=== PATIENT | female | born 1970 | race Two or more races ===

== ENCOUNTER 2018-02-14 11:41 | Emergency (ER) | payer BC, MEDICAID ==
[2018-02-14 12:19] LABS: BASOPHILS # (AUTO) 0.1 10^3/uL (0.0-0.1); BASOPHILS % (AUTO) 1.2 %; EOSINOPHILS # (AUTO) 0.4 10^3/uL (0.0-0.7); EOSINOPHILS % (AUTO) 4.9 %; LYMPHOCYTES # (AUTO) 2.2 10^3/uL (1.5-3.5); LYMPHOCYTES % (AUTO) 29.6 %; MEAN CORPUSCULAR HEMOGLOBIN 31.5 pg (27.0-31.0); MEAN CORPUSCULAR VOLUME 92.8 fL (81.0-99.0); MEAN PLATELET VOLUME 8.3 fL (7.9-10.8); MONOCYTES # (AUTO) 0.6 10^3/uL (0.0-1.0); MONOCYTES % (AUTO) 7.4 %; NEUTROPHILS # (AUTO) 4.3 10^3/uL (1.5-6.6); NEUTROPHILS % (AUTO) 56.9 %; PLT - PLATELET COUNT 200 10^3/uL (130-450); RED BLOOD COUNT 4.43 10^6/uL (4.20-5.40); RED CELL DISTRIBUTION WIDTH 13.2 % (12.0-15.0); WHITE BLOOD COUNT 7.5 x10^3/uL (4.8-10.8)
[2018-02-14 12:27] LABS: ALBUMIN 4.4 g/dL (3.2-5.5); ALBUMIN/GLOBULIN RATIO 1.4 (1.0-2.2); CALCIUM 9.1 mg/dL (8.5-10.3); CREATININE 0.6 mg/dL (0.4-1.0); TOTAL PROTEIN 7.6 g/dL (6.7-8.2)
--- NOTE | 2018-02-14 12:55 | XRAY Report ---
EXAM: CHEST RADIOGRAPHY EXAM DATE: 02/14/2018 12:37 PM. CLINICAL HISTORY: Chest pain with acute onset 2 hours ago, shortness of breath. Prior ME 18 months ag o. COMPARISON: 11/14/2015. TECHNIQUE: 2 views. FINDINGS: Lungs/Pleura: Diffuse pulmonary vascular fullness. No pleural effusion or definite focal consolidation. Mediastinum: Prominent cardiac silhouette. Other: Gallbladder fossa surgical clips. IMPRESSION: Mild pulmonary vascular congestion. [facility] Referring Provider Line: [phone] SITE ID: [id number]
--- NOTE | 2018-02-14 13:44 | ED Physician Documentation ---
PD HPI HEADACHE - Stated complaint Stated Complaint: HEAD,NECK,CHEST PX - Chief complaint Chief Complaint: Cardiac - History obtained from History obtained from: Patient - History of Present Illness Timing - onset: How many hours ago (2), Today Timing - onset during: Light activity (at work) Timing - duration: Minutes Timing - details: Abrupt onset, Now resolved (she had onset of abrupt sharp pain in frontal to left side of head (then seemed general headache) and it increased to involve anterior neck and then upper chest around manubrium. This was also sharp pain. She felt some dyspnea and lightheaded. No change nor loss of vision. No focal weakness nor facial droop nor trouble talking. Had history of heart problem about 1 1/2 years ago, dx with "small CT" and does have history of some migraines, but this felt different from those. Pain improved after few minutes and is mostly gone coming to the ED. She declines any meds here for the pain. Concerned about heart and head regarding significant process. ) Worst headache ever?: Worst headache ever? Quality: Stabbing Associated symptoms: No: Fever, Stiff neck, Nausea, Vomiting, Weakness, Numbness , Syncope, Eye pain, Vision changes Improved by: No: Rest Worsened by: Light. No: Noise Contributing factors: No: Anticoagulated, Recent illness, Trauma Similar symptoms before: Has not had sx before Recently seen: Not recently seen Review of Systems Constitutional: denies: Fever, Chills Nose: denies: Rhinorrhea / runny nose, Congestion, Sinus pressure / pain Throat: denies: Sore throat Respiratory: denies: Cough GI: denies: Nausea, Vomiting, Diarrhea Neurologic: denies: Focal weakness, Numbness, Difficulty speaking, Near syncope PD PAST MEDICAL HISTORY - Past Medical History Past Medical History: Yes Cardiovascular: CT (she says she had a small CT in the recnet past (about 1 1/2 years ago) and got sent to [facility] with heart cath showing open vessels. Presumed was small vessel injury and she is not on any particular treatment.) Respiratory: Asthma Neuro: Headache/migraine Endocrine/Autoimmune: HyPERthyroidism Psych: Depression, Anxiety - Past Surgical History Past Surgical History: Yes General: Cholecystectomy /TUBE MAN: section, Endometrial ablation, Tubal ligation - Present Medications Home Medications: Ambulatory Orders Medication Instructions Recorded Confirmed Levothyroxine Sodium [Levoxyl] 75 mcg PO QDAC 11/14/15 08/09/16 - Allergies Allergies/Adverse Reactions: Allergies Allergy/AdvReac Type Severity Reaction Status Date / Time No Known Drug Allergies Allergy Verified 02/14/18 11:59 - Living Situation Living Arrangement: reports: At home - Social History Does the pt smoke?: Yes Smoking Status: Current every day smoker Does the pt drink ETOH?: Yes Does the pt have substance abuse?: No - Immunizations Immunizations are current?: Yes PD ED PE NORMAL - Vitals Vital signs reviewed: Yes - General General: Alert and oriented X 3, No acute distress, Well developed/nourished - HEENT HEENT: PERRL, EOMI, Ears normal, Pharynx benign, Other (normal visual staton quadrant testing) - Neck Neck: Supple, no meningeal sign, No adenopathy, No bruit - Cardiac Cardiac: RRR, No murmur, No rub - Respiratory Respiratory: Clear bilaterally - Abdomen Abdomen: Soft, Non tender - Derm Derm: Normal color, Warm and dry - Extremities Extremities: No deformity, No tenderness to palpate, Normal ROM s pain, No edema , No calf tenderness / cord - Neuro Neuro: Alert and oriented X 3, clean in places operator 2-12 intact, No motor deficit, No sensory deficit, Normal speech Eye Opening: Spontaneous Motor: Obeys Commands Verbal: Oriented GCS Score: 15 - Psych Psych: Normal mood, Normal affect Results - Vitals Vitals: Vital Signs - 24 hr 02/14/18 02/14/18 02/14/18 11:57 12:55 17:21 Temperature 37.0 C Heart Rate 58 L 52 L 58 L Respiratory 16 16 Rate Blood Pressure 144/80 H 136/69 H 136/73 H O2 Saturation 99 98 Oxygen O2 Source Room air - EKG (time done) 12:03 Rate: Rate (enter#) (64) Rhythm: NSR [place]: Normal Intervals: Normal CA QRS: Normal Ischemia: Normal ST segments. No: ST elevation c/w ischemia, ST depression, T wave inversion - Labs Labs: Laboratory Tests 02/14/18 02/14/18 02/14/18 12:09 12:09 12:09 WBC 7.5 RBC 4.43 Hgb 14.0 Hct 41.1 MCV 92.8 MCH 31.5 H MCHC 34.0 RDW 13.2 Plt Count 200 MPV 8.3 Neut # 4.3 Lymph # 2.2 [place] # 0.6 Eos # 0.4 Baso # 0.1 Absolute Nucleated RBC 0.00 Nucleated RBC % 0.0 Sodium 136 Potassium 3.9 Chloride 106 Carbon Dioxide 21 Anion Gap 9.0 BUN 18 Creatinine 0.6 Estimated GFR (MDRD) 107 Glucose 94 Calcium 9.1 Total Bilirubin 1.0 AST 25 ALT 21 Alkaline Phosphatase 36 L Troponin I < 0.04 Total Protein 7.6 Albumin 4.4 Globulin 3.2 Albumin/Globulin Ratio 1.4 Lipase 54 H 02/14/18 14:21 WBC RBC Hgb Hct MCV MCH MCHC RDW Plt Count MPV Neut # Lymph # [place] # Eos # Baso # Absolute Nucleated RBC Nucleated RBC % Sodium Potassium Chloride Carbon Dioxide Anion Gap BUN Creatinine Estimated GFR (MDRD) Glucose Calcium Total Bilirubin AST ALT Alkaline Phosphatase Troponin I < 0.04 Total Protein Albumin Globulin Albumin/Globulin Ratio Lipase - Rads (name of study) chest xray Radiology: Prelim report reviewed (normal) head and neck angio Radiology: Prelim report reviewed (no signs of vascular problems. No other acute process seen.) PD MEDICAL DECISION MAKING - ED course Complexity details: considered differential (the abrupt onset of headache then neck and chest pain sounded concerning for vascular such as carotid dissection. These studies were okay though. And basic labs are good. So not a good explanation for the pains. Consider functional or other vascular headache such as a migraine, with some history of migraines but usually do not feel like this. No signs of AMI regarding the chest component of the pain. She says she had an CT in recent past but had heart cath with open vessels, so presumed it was a small vessel injury. No particular treatment at this time. ), d/w patient Departure - Departure Disposition: 01 Home, Self Care Clinical Impression: Chest pain Qualifiers: Chest pain type: precordial pain Qualified Code(s): R07.2 - Precordial pain Headache Qualifiers: Headache type: other headache syndrome Qualified Code(s): G44.89 - Other headache syndrome Clinical Impression: (Ruled Out): Myocardial infarction Condition: Stable Record reviewed to determine appropriate education?: Yes Instructions: ED Chest Pain Atypical Unkn Cause, ED Cephalgia Unspecified Follow-Up: Raul Rojas DO [Primary Care Provider] - Comments: No signs of heart attack on EKG or blood tests. No signs of vascular problems such as aneurysms, dissections, clots on evaluation of the neck and head. I am not sure the cause of your head neck and chest pain. Use Tylenol or ibuprofen if needed for pains. There is no signs of life-threatening or serious causes at this time. Recheck if it has recurrent episodes or persistent symptoms over the next few days. Discharge Date/Time: 02/14/18 17:21
[2018-02-14] MEDS ORDERED: IOPAMIDOL-300 100 ML VIAL ONE (14:23)
[2018-02-14] MEDS ORDERED: IOPAMIDOL-300 100 ML VIAL IVP ONE (15:50)
--- NOTE | 2018-02-14 16:31 | CT Preliminary Report ---
Exam: CT HEAD ANGIO IMPRESSION: CT Head: 1. No acute intracranial abnormality. Specifically, no evidence of acute infarct, hemorrhage, or mass lesion. No abnormal enhancement. CTA Head: 1. Normal CTA of the head. No significant vascular stenosis, dissection, or aneurysm. 2. The left vertebral artery is dominant, primarily forming the basilar artery. Right vertebral arter y is diffusely small in caliber. [facility] SITE ID: [id number]
--- NOTE | 2018-02-14 16:31 | CT Preliminary Report ---
Exam: CT NECK ANGIO IMPRESSION: 1. Normal neck CT angiogram. No hemodynamically significant stenoses. 2. Note the left vertebral artery is dominant. The right vertebral artery is diffusely small in calib er. [facility] SITE ID: [id number]
--- NOTE | 2018-02-14 16:38 | CT Report ---
EXAM: CT ANGIOGRAM HEAD. CT SCAN OF THE HEAD WITHOUT AND WITH CONTRAST. EXAM DATE: 02/14/2018 03:49 PM CLINICAL HISTORY: Headache abrupt today, then neck and chest pain. COMPARISON: None. CT angiogram of the neck 02/14/2018. TECHNIQUE: - CT Scan Head: Using a multidetector scanner, axial images were acquired from the foramen magnum to the skull vertex prior to and following contrast administration. - CT Angiogram: Using a multidetector scanner, high-resolution axial images were acquired from the sk ull base through vertex following rapid infusion of intravenous contrast. Reformats: Multiplanar MIP reformats were reconstructed. Nascet criteria used for stenosis measurement. IV Contrast: 80 mL Isovue 300. In accordance with CT protocol optimization, one or more of the following dose reduction techniques w ere utilized for this exam: automated exposure control, adjustment of mA and/or KV based on patient s ize, or use of iterative reconstructive technique. FINDINGS: NON-CONTRAST HEAD: Parenchyma: No intraparenchymal hemorrhage. No evidence of mass, midline shift, or CT findings of inf arction. [place]-white differentiation is distinct. Extraaxial Spaces: Normal for age. No subdural or epidural collections identified. Ventricles: Normal in size and position. Sinuses and orbits: Imaged paranasal sinuses, orbits, and mastoids show no significant abnormality. Bones: No evidence of fracture or calvarial defect. Other: None. POST-CONTRAST HEAD: No abnormal enhancement. CT ANGIOGRAM HEAD: RIGHT: Internal Carotid artery: No evidence of dissection. No evidence of aneurysm along the intracranial IC A. Anterior Cerebral Artery: Patent without significant stenosis, aneurysm, or vascular malformation. Middle Cerebral Artery: Patent without significant stenosis, aneurysm, or vascular malformation. Posterior Cerebral Artery: Patent without significant stenosis, aneurysm, or vascular malformation. Posterior Communicating Artery: Patent. No aneurysm. Vertebral Artery: Patent without significant stenosis. No evidence of dissection. Diffusely small in caliber. LEFT: Internal Carotid artery: No evidence of dissection. No evidence of aneurysm along the intracranial IC A. Anterior Cerebral Artery: Patent without significant stenosis, aneurysm, or vascular malformation. Middle Cerebral Artery: Patent without significant stenosis, aneurysm, or vascular malformation. Posterior Cerebral Artery: Patent without significant stenosis, aneurysm, or vascular malformation. Posterior Communicating Artery: Not visualized. Vertebral Artery: Patent without significant stenosis. No evidence of dissection. Dominant, primarily forming the basilar artery. CENTRAL: Anterior Communicating Artery: Patent. No aneurysm. Basilar Artery: Patent without significant stenosis. No aneurysm. DURAL VENOUS SINUSES AND MAJOR CENTRAL VEINS: Patent. The left transverse sinus and jugular bulb are dominant. IMPRESSION: CT Head: 1. No acute intracranial abnormality. Specifically, no evidence of acute infarct, hemorrhage, or mass lesion. No abnormal enhancement. CTA Head: 1. Normal CTA of the head. No significant vascular stenosis, dissection, or aneurysm. 2. The left vertebral artery is dominant, primarily forming the basilar artery. Right vertebral arter y is diffusely small in caliber. [facility] Referring Provider Line: [phone] SITE ID: [id number]
--- NOTE | 2018-02-14 16:38 | CT Report ---
EXAM: CT ANGIOGRAM NECK EXAM DATE: 02/14/2018 03:49 PM. CLINICAL HISTORY: Abrupt today headache, then neck/chest pain. COMPARISON: None. CT scan and CT angiogram of the head 02/14/2018. TECHNIQUE: Routine axial helical imaging was performed from the skull base through the aortic arch. R econstructions: Routine multiplanar 3D MIP reconstructions. IV Contrast: 80 mL Isovue 300. Evaluation of arterial stenosis is based on a NASCET method of measurement. In accordance with CT protocol optimization, one or more of the following dose reduction techniques w ere utilized for this exam: automated exposure control, adjustment of mA and/or KV based on patient s ize, or use of iterative reconstructive technique. FINDINGS: The visualized aortic arch is unremarkable. Normal three-vessel branching is seen. Great vessels off the arch are patent and unremarkable. Right Carotid: The common carotid, internal carotid, and external carotid arteries are widely patent. No dissection, significant atherosclerotic plaque, or calcification identified. Left Carotid: The common carotid, internal carotid, and external carotid arteries are widely patent. No dissection, significant atherosclerotic plaque, or calcification identified. Minimal atherosclerot ic intimal thickening and punctate calcification is seen at the CCA bifurcation and proximal ICA. No stenosis. Vertebrals: The vertebrobasilar system shows no stenoses. The left vertebral artery is dominant. The right vertebral artery is diffusely small in caliber. Intracranial Circulation: (See report of CT angiogram of the head performed at the same time.) Other: The bones, soft tissues, and lung apices are within normal limits. IMPRESSION: 1. Normal neck CT angiogram. No hemodynamically significant stenoses. 2. Note the left vertebral artery is dominant. The right vertebral artery is diffusely small in calib er. [facility] Referring Provider Line: [phone] SITE ID: [id number]
[2018-02-14 17:21] VITALS: BP 136/73
== END 2018-02-14 17:21 | disposition home or self-care (01) ==
LOC: ED 11:41
DX: R07.2 Precordial pain (principal); G44.89 Other headache syndrome; I25.2 Old myocardial infarction; J45.909 Unspecified asthma, uncomplicated; E05.90 Thyrotoxicosis, unspecified without thyrotoxic crisis or storm; F17.200 Nicotine dependence, unspecified, uncomplicated
CPT/HCPCS: 36415; 70496; 70498; 71046; 80053; 83690; 84484; 85025; 93005; 99283; Q9967

== ENCOUNTER 2018-08-05 10:40 | Outpatient (CLI) | payer BC, MEDICAID ==
[2018-08-05 19:16] LABS: THYROID STIMULATING HORMONE 16.38 uIU/mL (0.34-5.60)
[2018-08-05 19:18] LABS: FREE T4 (FREE THYROXINE) 0.62 ng/dL (0.58-1.64)
== END 2018-08-05 10:41 | disposition home or self-care (01) ==
LOC: LAB.WCP 10:40
PROVIDERS: ATTEND Family Medicine
DX: E05.00 Thyrotoxicosis with diffuse goiter without thyrotoxic crisis or storm (principal); E03.9 Hypothyroidism, unspecified
CPT/HCPCS: 36415; 84439; 84443; 84481

== ENCOUNTER 2019-02-20 09:12 | Observation (INO) | payer OTHER, MEDICAID ==
--- NOTE | 2019-02-20 09:29 | ED Physician Documentation ---
PD HPI CHEST PAIN - Stated complaint Stated Complaint: CHEST PAIN - Chief complaint Chief Complaint: Cardiac - History obtained from History obtained from: Patient, Family - History of Present Illness Timing - onset: Enter time (829), Today Timing - onset during: Light activity Timing - duration: Minutes Timing - details: Abrupt onset, Still present Pain level max: 10 Pain level now: 2 Quality: Sharp, Like prior ACS, Pain Location: Substernal Radiation: Neck Improved by: ASA Associated symptoms: Shortness of air, Diaphoresis, Feeling faint / dizzy Similar symptoms before: Diagnosis (AMI) Recently seen: Not recently seen - Additional information Additional information: 48-year-old female with a prior history of apical infarction has developed chest pain while getting ready for work this morning that she describes as substernal and radiating into her chin. She did develop a headache headache associated with this as well. She indicates that when this pain came on with a 10 out of 10 she was diaphoretic a bit short of breath and felt lightheaded. She states that the symptoms are similar to what she had when she had a small heart attack 3 years ago. She states that at that time she was seen here transferred to [facility] after a stay in the hospital and had a small terminal vessel that was involved in the infarction. The remainder of her vessels were apparently open. She has not had a recent illness and indicates that she is not recently had episodes of chest pain or feeling that she is out of shape. Review of Systems Constitutional: denies: Fever Eyes: denies: Decreased vision Ears: denies: Ear pain Nose: denies: Rhinorrhea / runny nose, Congestion Throat: denies: Sore throat Cardiac: reports: Chest pain / pressure. denies: Palpitations, Pedal edema, Calf pain Respiratory: reports: Dyspnea. denies: Cough GI: denies: Abdominal Pain, Nausea, Vomiting : denies: Dysuria, Frequency PD PAST MEDICAL HISTORY - Past Medical History Cardiovascular: CO (she says she had a small CO in the recnet past (about 1 1/2 years ago) and got sent to [facility] with heart cath showing open vessels. Presumed was small vessel injury and she is not on any particular treatment.) Respiratory: Asthma Endocrine/Autoimmune: HyPERthyroidism Psych: Depression, Anxiety - Past Surgical History Past Surgical History: Yes General: Cholecystectomy /SKEIN WINDER: section, Endometrial ablation, Tubal ligation - Present Medications Home Medications: Ambulatory Orders Medication Instructions Recorded Confirmed Levothyroxine Sodium [Levoxyl] 75 mcg PO QDAC 11/14/15 02/20/19 - Allergies Allergies/Adverse Reactions: Allergies Allergy/AdvReac Type Severity Reaction Status Date / Time No Known Drug Allergies Allergy Verified 02/20/19 09:23 - Social History Does the pt smoke?: Yes Smoking Status: Current every day smoker Does the pt drink ETOH?: Yes Does the pt have substance abuse?: No - Immunizations Immunizations are current?: Yes PD ED PE NORMAL - Vitals Vital signs reviewed: Yes - General General: Alert and oriented X 3, No acute distress, Well developed/nourished - HEENT HEENT: Atraumatic, PERRL, EOMI, Ears normal, Moist mucous membranes, Pharynx benign, Dentition benign - Neck Neck: Supple, no meningeal sign, No bony TTP - Cardiac Cardiac: RRR, No murmur - Respiratory Respiratory: No respiratory distress, Clear bilaterally, Other (There is some chest wall tenderness that is separate from the pain the patient was experiencing. ) - Abdomen Abdomen: Soft, Non tender - Back Back: No CVA TTP, No spinal TTP - Derm Derm: Normal color, Warm and dry, No rash - Extremities Extremities: No deformity, No edema - Neuro Neuro: Alert and oriented X 3, senior administrator support 2-12 intact, No motor deficit, No sensory deficit, Normal speech Eye Opening: Spontaneous Motor: Obeys Commands Verbal: Oriented GCS Score: 15 - Psych Psych: Normal mood, Normal affect Results - Vitals Vitals: Vital Signs - 24 hr 02/20/19 02/20/19 02/20/19 09:20 09:40 10:03 Temperature 36.0 C L Heart Rate 57 L 53 L 54 L Respiratory 14 16 16 Rate Blood Pressure 138/72 H 139/82 H 142/72 H O2 Saturation 100 98 98 02/20/19 11:18 Temperature Heart Rate 47 L Respiratory 16 Rate Blood Pressure 126/67 O2 Saturation 96 Oxygen O2 Source Room air - EKG (time done) 0922 Rate: Rate (enter#) (61) Rhythm: NSR Ischemia: Normal ST segments Compare to prior EKG: Unchanged from prior EKG (SPT 02-14-18 non changes) Computer interpretation: Agree with computer - Labs Labs: Laboratory Tests 02/20/19 02/20/19 02/20/19 09:44 09:44 09:44 WBC 5.6 RBC 4.58 Hgb 14.4 Hct 42.2 MCV 92.1 MCH 31.4 H MCHC 34.1 RDW 13.2 Plt Count 205 MPV 8.5 Neut # (Auto) 3.0 Lymph # (Auto) 1.7 [place] # (Auto) 0.5 Eos # (Auto) 0.4 Baso # (Auto) 0.1 Absolute Nucleated RBC 0.00 Nucleated RBC % 0.0 Sodium 136 Potassium 4.0 Chloride 104 Carbon Dioxide 23 Anion Gap 9.0 BUN 27 H Creatinine 0.7 Estimated GFR (MDRD) 89 Glucose 108 H Calcium 9.2 Total Bilirubin 1.0 AST 39 ALT 38 Alkaline Phosphatase 46 Troponin I < 0.04 Total Protein 7.6 Albumin 4.3 Globulin 3.3 Albumin/Globulin Ratio 1.3 Lipase 92 H 02/20/19 11:35 WBC RBC Hgb Hct MCV MCH MCHC RDW Plt Count MPV Neut # (Auto) Lymph # (Auto) [place] # (Auto) Eos # (Auto) Baso # (Auto) Absolute Nucleated RBC Nucleated RBC % Sodium Potassium Chloride Carbon Dioxide Anion Gap BUN Creatinine Estimated GFR (MDRD) Glucose Calcium Total Bilirubin AST ALT Alkaline Phosphatase Troponin I < 0.04 Total Protein Albumin Globulin Albumin/Globulin Ratio Lipase - Rads (name of study) chest 2 veiw Radiology: Prelim report reviewed (Impression normal two-view chest radiogr aphy.) PD MEDICAL DECISION MAKING - ED course Complexity details: reviewed old records, reviewed results, re-evaluated patient, considered differential, d/w patient ED course: 48-year-old female with a prior history of a small myocardial infarction has developed again chest pain which she relates is similar to what she is had previously with infarction and this morning she has 2- troponins. She has previously had similar presentation with a slowly climbing troponin over hours. At that time she had an infarction due to a small terminal vessel. I have asked Dr. Raman to place the patient in observation, he has graciously agreed and he has suggested repeat troponins and echocardiogram. Departure - Departure Disposition: ED Place in Observation Clinical Impression: Chest pain, rule out acute myocardial infarction Condition: Stable
[2019-02-20 09:56] LABS: BASOPHILS # (AUTO) 0.1 10^3/uL (0.0-0.1); BASOPHILS % (AUTO) 1.6 %; EOSINOPHILS # (AUTO) 0.4 10^3/uL (0.0-0.7); EOSINOPHILS % (AUTO) 7.7 %; HGB - HEMOGLOBIN 14.4 g/dL (12.0-16.0); LYMPHOCYTES # (AUTO) 1.7 10^3/uL (1.5-3.5); LYMPHOCYTES % (AUTO) 30.2 %; MEAN CORPUSCULAR HEMOGLOBIN 31.4 pg (27.0-31.0); MEAN CORPUSCULAR HGB CONC 34.1 g/dL (32.0-36.0); MEAN CORPUSCULAR VOLUME 92.1 fL (81.0-99.0); MEAN PLATELET VOLUME 8.5 fL (7.9-10.8); MONOCYTES # (AUTO) 0.5 10^3/uL (0.0-1.0); MONOCYTES % (AUTO) 8.1 %; NEUTROPHILS % (AUTO) 52.4 %; PLT - PLATELET COUNT 205 10^3/uL (130-450); RED BLOOD COUNT 4.58 10^6/uL (4.20-5.40); RED CELL DISTRIBUTION WIDTH 13.2 % (12.0-15.0); WHITE BLOOD COUNT 5.6 x10^3/uL (4.8-10.8)
[2019-02-20 10:05] LABS: ALBUMIN 4.3 g/dL (3.2-5.5); ALBUMIN/GLOBULIN RATIO 1.3 (1.0-2.2); CALCIUM 9.2 mg/dL (8.5-10.3); CREATININE 0.7 mg/dL (0.4-1.0); TOTAL PROTEIN 7.6 g/dL (6.7-8.2)
--- NOTE | 2019-02-20 10:16 | XRAY Report ---
Reason: chest pain Procedure Date: 02/20/2019 Accession Number: [id number] / [id number] Procedure: XR - Chest 2 View X-Ray CPT Code: 53476 FULL RESULT: EXAM: CHEST RADIOGRAPHY EXAM DATE: 02/20/2019 10:04 AM. CLINICAL HISTORY: Chest pain. COMPARISON: CHEST 2 VIEW 02/14/2018 12:13 PM. TECHNIQUE: 2 views. FINDINGS: Lungs/Pleura: No focal opacities evident. No pleural effusion. No pneumothorax. Normal volumes. Mediastinum: Heart and mediastinal contours are unremarkable. Other: None. IMPRESSION: Normal 2-view chest radiography. [facility]
[2019-02-20] MEDS ORDERED: ONDANSETRON 4 MG/2 ML VIAL IVP PRN (13:08)
[2019-02-20] MEDS ORDERED: SODIUM CHLORIDE FLUSH 0.9% 10 ML SYRINGE IVP PRN (13:08)
[2019-02-20] MEDS ORDERED: TEMAZEPAM 15 MG CAPSULE PO PRN (13:08)
[2019-02-20] MEDS ORDERED: ACETAMINOPHEN 325 MG TABLET PO PRN (13:08)
--- NOTE | 2019-02-20 13:21 | HISTORY & PHYSICAL EXAMINATION ---
Chief Complaint - Chief Complaint Chief Complaint: chest pain, dizziness Chest Pain Admission HPI - Admitted From Admitted from: ED - History Obtained From Records Reviewed: RN notes reviewed History obtained from: Patient - History of Present Illness Severity at the worst: reports: Severe Pain Quality: reports: Sharp Context-Pain started w/: reports: Movement Timing: reports: Abrupt onset, Intermittent Duration: reports: Hours: (1) Improved with: reports: Nothing Worsened by: reports: Movement Associated symptoms: reports: Shortness of air, Diaphoresis, Nausea, Feeling faint / dizzy, General Weakness HPI Comment/Other: Michelle Oconnor is a 48-year-old female with a history of apical infarction developed acute chest pain while getting ready for work this morning that she describes as sub-sternal, penetrated through her body, into her back, then radiating into her mid-chin. Associated symptoms included; headache, dizziness, diaphoresis, shortness of breath and appeared pale to her significant other. She states that this episode reminded her of symptoms from her last ID 3 years ago. She states that at that time she was seen here transferred to [place] after a stay in the hospital and had a small terminal vessel that was involved in the infarction. The remainder of her vessels were apparently open. She had seen a middle school history teacher, "someone named Oliver", maybe Oliver Ontiveros MD who saw her in [place] last, but has signed of. She admits to a feeling of generalized pain from head to toe 2 nights ago, but resolved after sleeping, otherwise no other illnesses. PMH/PSH - Past Medical History Cardiovascular: positive: Hypertension, Angina, ID (she says she had a small ID in the recnet past (about 1 1/2 years ago) and got sent to [facility] with heart cath showing open vessels. Presumed was small vessel injury and she is not on any particular treatment.), Murmur Respiratory: positive: Asthma Neuro: positive: Headaches Endocrine/Autoimmune: positive: HyPOthyroidism, Other (graves disease-goiter) GI: positive: GERD, Hiatal hernia HEALTH COMMUNICATIONS SPECIALIST: positive: None : positive: None HEENT: positive: Chronic sinusitis Psych: positive: Depression, Anxiety Musculoskeletal: positive: None Derm: positive: None MRSA Hx?: No - Past Surgical History General: positive: Cholecystectomy /HEALTH COMMUNICATIONS SPECIALIST: positive: section, Endometrial ablation, Tubal ligation Cardiovascular: positive: Cardiac catheterization Social & Family Hx - Living Situation Living Arrangement: At home Living Situation: With spouse/s.o. - Social History Does the pt smoke?: Yes Smoking Status: Current every day smoker (6-10 cigarettes per day, since age 16 years) Does the pt drink ETOH?: Yes Does the pt have substance abuse?: No - POLST Patient has POLST: No POLST Status: Full Code - Family History Family History: Mother: Alive and Well, Diabetes, Type 2, Father: Alive and Well, Diabetes, Type 2, Sister: Alive and Well, CVA/TIA, Diabetes, Type 2 Meds/Allgy - Home Medications Home Medications: Ambulatory Orders Medication Instructions Recorded Confirmed Levothyroxine Sodium [Levoxyl] 75 mcg PO QDAC 11/14/15 02/20/19 - Allergies Allergies/Adverse Reactions: Allergies Allergy/AdvReac Type Severity Reaction Status Date / Time No Known Drug Allergies Allergy Verified 02/20/19 09:23 Review of Systems - Constitutional Constitutional: reports: Fatigue, Weakness, Diaphoresis - Ears, Nose & Throat Ears, Nose & Throat: reports: Postnasal drainage, Dental decay - Cardiovascular Cariovascular: reports: Chest pain, Lightheadedness - Respiratory Respiratory: reports: Cough, SOB with exertion - Gastrointestinal Gastrointestinal: reports: Nausea, Reflux/heartburn, Bloating - Genitourinary Genitourinary: reports: Nocturia - Integumentary Integumentary: reports: Dryness - Neurological Neurological: reports: General weakness, Headache, Dizziness, Numbness, Pre- existing deficit - Psychiatric Psychiatric: reports: Depression, Anxiety - Endocrine Endocrine: reports: Polydypsia - All Other Systems All Other Systems: reports: Reviewed and negative Prior Level of Functionality: Works outside the home. No recent falls, no use of devices. Exam - Vital Signs Reviewed Vital Signs: Yes Vital Signs: Vital Signs x48h Temp Pulse Resp BP Pulse Ox 02/20/19 12:56 75 16 154/86 H 98 02/20/19 11:18 47 L 16 126/67 96 02/20/19 10:03 54 L 16 142/72 H 98 02/20/19 09:40 53 L 16 139/82 H 98 02/20/19 09:20 36.0 C L 57 L 14 138/72 H 100 - Physical Exam General Appearance: positive: No acute distress, Alert Eyes Bilateral: positive: PERRL ENT: positive: Pharynx nml, No signs of dehydration Neck: positive: Thyroid nml, No JVD, Trachea midline Respiratory: positive: Chest non-tender, No respiratory distress, Breath sounds nml Cardiovascular: positive: Regular rate & rhythm, No murmur, No gallop Peripheral Pulses: positive: 2+ Abdomen: positive: Non-tender, Nml bowel sounds, No distention Back: positive: Nml inspection Skin: positive: Color nml, No rash, Warm, Dry Extremities: positive: Non-tender, Full ROM, Nml appearance, No pedal edema Neurologic/Psychiatric: positive: Oriented x3, CN's nml (2-12), Motor nml, Sensation nml, Mood/affect nml Reflexes: Bicep (R): 4+, Bicep (L): 4+ Results - Lab Results Lab results reviewed: Yes Fish Bones: 02/20/19 09:44 02/20/19 09:44 Other Lab Results: Lab Results x24hrs 02/20/19 02/20/19 02/20/19 Range/Units 11:35 09:44 09:44 WBC (4.8-10.8) x10^3/uL RBC (4.20-5.40) 10^6/uL Hgb (12.0-16.0) g/dL Hct (37.0-47.0) % MCV (81.0-99.0) fL MCH (27.0-31.0) pg MCHC (32.0-36.0) g/dL RDW (12.0-15.0) % Plt Count (130-450) 10^3/uL MPV (7.9-10.8) fL Neut # (Auto) (1.5-6.6) 10^3/uL Lymph # (Auto) (1.5-3.5) 10^3/uL Ward # (Auto) (0.0-1.0) 10^3/uL Eos # (Auto) (0.0-0.7) 10^3/uL Baso # (Auto) (0.0-0.1) 10^3/uL Absolute Nucleated RBC x10^3/uL Nucleated RBC % /100WBC Sodium 136 (135-145) mmol/L Potassium 4.0 (3.5-5.0) mmol/L Chloride 104 (101-111) mmol/L Carbon Dioxide 23 (21-32) mmol/L Anion Gap 9.0 (6-13) BUN 27 H (6-20) mg/dL Creatinine 0.7 (0.4-1.0) mg/dL Estimated GFR (MDRD) 89 (>89) Glucose 108 H (70-100) mg/dL Calcium 9.2 (8.5-10.3) mg/dL Total Bilirubin 1.0 (0.2-1.0) mg/dL AST 39 (10-42) IU/L ALT 38 (10-60) IU/L Alkaline Phosphatase 46 (42-121) IU/L Troponin I < 0.04 < 0.04 (<0.49) ng/mL Total Protein 7.6 (6.7-8.2) g/dL Albumin 4.3 (3.2-5.5) g/dL Globulin 3.3 (2.1-4.2) g/dL Albumin/Globulin Ratio 1.3 (1.0-2.2) Lipase 92 H (22-51) U/L 02/20/19 Range/Units 09:44 WBC 5.6 (4.8-10.8) x10^3/uL RBC 4.58 (4.20-5.40) 10^6/uL Hgb 14.4 (12.0-16.0) g/dL Hct 42.2 (37.0-47.0) % MCV 92.1 (81.0-99.0) fL MCH 31.4 H (27.0-31.0) pg MCHC 34.1 (32.0-36.0) g/dL RDW 13.2 (12.0-15.0) % Plt Count 205 (130-450) 10^3/uL MPV 8.5 (7.9-10.8) fL Neut # (Auto) 3.0 (1.5-6.6) 10^3/uL Lymph # (Auto) 1.7 (1.5-3.5) 10^3/uL Ward # (Auto) 0.5 (0.0-1.0) 10^3/uL Eos # (Auto) 0.4 (0.0-0.7) 10^3/uL Baso # (Auto) 0.1 (0.0-0.1) 10^3/uL Absolute Nucleated RBC 0.00 x10^3/uL Nucleated RBC % 0.0 /100WBC Sodium (135-145) mmol/L Potassium (3.5-5.0) mmol/L Chloride (101-111) mmol/L Carbon Dioxide (21-32) mmol/L Anion Gap (6-13) BUN (6-20) mg/dL Creatinine (0.4-1.0) mg/dL Estimated GFR (MDRD) (>89) Glucose (70-100) mg/dL Calcium (8.5-10.3) mg/dL Total Bilirubin (0.2-1.0) mg/dL AST (10-42) IU/L ALT (10-60) IU/L Alkaline Phosphatase (42-121) IU/L Troponin I (<0.49) ng/mL Total Protein (6.7-8.2) g/dL Albumin (3.2-5.5) g/dL Globulin (2.1-4.2) g/dL Albumin/Globulin Ratio (1.0-2.2) Lipase (22-51) U/L - Diagnostic Imaging Results Diagnostic Imaging Results: positive: Final report reviewed - EKG Results EKG Interpreted Independently: Yes EKG Comparison: positive: Unchanged from prior EKG EKG Findings: SR Sepsis Event Note (H) - Evaluation Current Stage of Sepsis: Ruled out CP/CHF Plan - Echo Plan to order an echo?: Yes - Plan Patient Problems: All Active Problems Chest pain, rule out acute myocardial infarction (Acute) Chest pain (Acute) Headache (Acute) Needle stick injury of finger (Acute) Rash and nonspecific skin eruption (Acute) Strain of back muscle (Acute) Plan: Same day observation, pending Echo and 2nd troponin after 1530 lab draw- if normal, discharge home. Core Measures - Anticipated LOS I expect patient to be DC'd or transferred within 96 hours.: Yes - DVT/VTE - Prophylaxis VTE/DVT Device ordered at admit?: Yes VTE/DVT Prophylaxis med ordered at admit?: Yes - Stroke - Rehab Assessment Rehab services assessment to be ordered?: Yes - AMI - Statin at Admit Aspirin Prescribed on Admit: Yes
[2019-02-20] MEDS ORDERED: PANTOPRAZOLE 40 MG TABLET PO SCH (14:00)
[2019-02-20 16:02] LABS: HB2 TOTAL 15.5 g/dL; HEMOGLOBIN A1C 0.63 g/dL; HEMOGLOBIN A1C % 5.9 % (4.6-6.2)
[2019-02-20 16:03] LABS: MAGNESIUM 2.1 mg/dL (1.7-2.8)
[2019-02-20 16:09] LABS: CHOL/HDL RATIO 5.3 (<4.4); CHOLESTEROL 210 mg/dL; HDL CHOLESTEROL 40 mg/dL; LDL CHOLESTEROL,CALCULATED 139 mg/dL; LDL/HDL RATIO 3.5 (<4.4); VLDL CHOLESTEROL 31 mg/dL
--- NOTE | 2019-02-20 16:48 | Discharge Plan ---
Discharge Plan Disposition: 01 Home, Self Care Condition: Good Prescriptions: Aspirin [Adult Aspirin Regimen] 81 mg PO DAILY #30 tablet. Atorvastatin Calcium 40 mg PO DAILY #30 tablet Levothyroxine [Synthroid] 100 mcg PO QDAC #30 tablet raNITIdine [Zantac] 150 mg PO DAILY #30 tablet Diet: Regular Activity Restrictions: Activity as Tolerated Shower Restrictions: No Driving Restrictions: No Additional Instructions or Follow Up instructions: You presented to the ED with acute chest pain that could have been cardiac in nature concerning for a heart attack. All of your troponin blood tests were normal. An echocardiogram was completed, which was normal with no evidence of heart damage. Your lipid panel was elevated, and hour hemoglobin A1C was also elevated. It is recommended that you increased your exercise and follow up with your PCP within 1-2 weeks. Your TSH was elevated which could explain these symptoms, as well as your excessive thirst. These symptoms could also be heart burn, and with knowing about your hiatal hernia, please try to take a daily Zantac to prevent further episodes. I have increased your Levothyroxine to 100 mcg daily, recheck the TSH ~ 4-6 weeks by PCP. No Smoking: If you smoke, Please STOP! Call for help. Follow-up with: Raul Rojas DO [Primary Care Provider] -
--- NOTE | 2019-02-20 16:55 | DISCHARGE SUMMARY ---
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) Headache (R51) Hypothyroidism, unspecified (E03.9) Personal history of other diseases of the digestive system (Z87.19) Polydipsia (R63.1) Nicotine dependence, unspecified, uncomplicated (F17.200) Obesity, unspecified (E66.9) Family history of diabetes mellitus (Z83.3) Elevated TSH (R79.89) Hyperlipidemia (E78.5) Discharge Diagnoses with Status of Each Condition: Chest pain, unspecified (R07.9) resolved Prediabetes (R73.03) HgA1C was 5.9% 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) chronic, stable Headache (R51) chronic, stable Hypothyroidism, unspecified (E03.9) chronic, stable Personal history of other diseases of the digestive system (Z87.19) chronic, stable Polydipsia (R63.1) chronic, stable Nicotine dependence, unspecified, uncomplicated (F17.200) chronic, stable Obesity, unspecified (E66.9) chronic, stable, encouraged to get regular exercise Family history of diabetes mellitus (Z83.3) chronic, stable Elevated TSH (R79.89) 10.37 now, Synthroid increased to 100 mcg daily Hyperlipidemia (E78.5) chronic, stable, started on Lipitor - HOSPITAL COURSE Hospital Course: Echo showed no regional wall motion abnormalities, troponins were negative. The patient had a resolution of symptoms. TSH was elevated, so Synthroid was adjusted. Advised to see PCP. - ALLERGIES Allergies/Adverse Reactions: Allergies Allergy/AdvReac Type Severity Reaction Status Date / Time No Known Drug Allergies Allergy Verified 02/20/19 09:23 - MEDICATIONS Home Medications: Ambulatory Orders Medication Instructions Recorded Confirmed Aspirin [Adult Aspirin Regimen] 81 mg PO DAILY #30 tablet. 02/20/19 Atorvastatin Calcium 40 mg PO DAILY #30 tablet 02/20/19 Levothyroxine [Synthroid] 100 mcg PO QDAC #30 tablet 02/20/19 raNITIdine [Zantac] 150 mg PO DAILY #30 tablet 02/20/19 - PHYSICAL EXAM AT DISCHARGE General Appearance: positive: No acute distress, Alert Eyes Bilateral: positive: PERRL ENT: positive: ENT inspection nml, Pharynx nml, No signs of dehydration Neck: positive: Nml inspection, Thyroid nml, No JVD, Trachea midline Respiratory: positive: Chest non-tender, No respiratory distress, Breath sounds nml Cardiovascular: positive: Regular rate & rhythm, No murmur, No gallop Peripheral Pulses: positive: 2+ Abdomen: positive: Non-tender, Nml bowel sounds Back: positive: Nml inspection Skin: positive: Color nml, No rash, Warm, Dry Extremities: positive: Non-tender, Full ROM, Nml appearance, No pedal edema Neurologic/Psychiatric: positive: Oriented x3, CN's nml (2-12), Motor nml, Sensation nml, Mood/affect nml Reflexes: Bicep (R): 4+, Bicep (L): 4+ - LABS Result Diagrams: 02/20/19 09:44 02/20/19 09:44 - SEPSIS Current Stage of Sepsis: Ruled out - TIME SPENT Time Spent in Discharge (Minutes): 35
[2019-02-20] MEDS ORDERED: SODIUM CHLORIDE FLUSH 0.9% 10 ML SYRINGE IVP SCH (17:00)
[2019-02-20 18:00] VITALS: BP 146/83
[2019-02-21] MEDS ORDERED: LEVOTHYROXINE 75 MCG TABLET PO SCH ×2 (07:00)
[2019-02-21] MEDS ORDERED: POLYETHYLENE GLYCOL 3350 17 GM PACKET PO SCH (09:00)
== END 2019-02-20 18:00 | disposition home or self-care (01) ==
LOC: ED 09:12 → OBS 13:08
PROVIDERS: ADMIT Nurse Practitioner; ATTEND Nurse Practitioner
DX: R07.2 Precordial pain (principal); R73.03 Prediabetes; E05.00 Thyrotoxicosis with diffuse goiter without thyrotoxic crisis or storm; R51 Headache; E03.9 Hypothyroidism, unspecified; E78.5 Hyperlipidemia, unspecified; R63.1 Polydipsia; R06.02 Shortness of breath; R42 Dizziness and giddiness; R61 Generalized hyperhidrosis; I10 Essential (primary) hypertension; E66.9 Obesity, unspecified; K21.9 Gastro-esophageal reflux disease without esophagitis; K44.9 Diaphragmatic hernia without obstruction or gangrene; J45.909 Unspecified asthma, uncomplicated; F17.210 Nicotine dependence, cigarettes, uncomplicated; I25.2 Old myocardial infarction; Z83.3 Family history of diabetes mellitus; Z79.899 Other long term (current) drug therapy; Z68.30 Body mass index [BMI] 30.0-30.9, adult
CPT/HCPCS: 36415; 71046; 80061; 82550; 83036; 83690; 83735; 83880; 84484; 85379; 93005; 93306; 99284; G0378; 80053; 83721; 84443; 85025

== ENCOUNTER 2021-09-23 08:00 | Outpatient (CLI) | payer MEDICAID, OTHER ==
[2021-09-23 18:25] LABS: BASOPHILS # (AUTO) 0.1 10^3/uL (0.0-0.1); BASOPHILS % (AUTO) 1.1 %; EOSINOPHILS # (AUTO) 0.4 10^3/uL (0.0-0.7); EOSINOPHILS % (AUTO) 5.8 %; HCT - HEMATOCRIT 43.8 % (37.0-47.0); HGB - HEMOGLOBIN 14.5 g/dL (12.0-16.0); LYMPHOCYTES # (AUTO) 2.6 10^3/uL (1.5-3.5); LYMPHOCYTES % (AUTO) 40.4 %; MEAN CORPUSCULAR HEMOGLOBIN 31.9 pg (27.0-31.0); MEAN CORPUSCULAR HGB CONC 33.1 g/dL (32.0-36.0); MEAN CORPUSCULAR VOLUME 96.3 fL (81.0-99.0); MEAN PLATELET VOLUME 10.8 fL (7.9-10.8); MONOCYTES # (AUTO) 0.3 10^3/uL (0.0-1.0); MONOCYTES % (AUTO) 5.4 %; NEUTROPHILS % (AUTO) 47.1 %; PLT - PLATELET COUNT 204 10^3/uL (130-450); RED BLOOD COUNT 4.55 10^6/uL (4.20-5.40); RED CELL DISTRIBUTION WIDTH 12.6 % (12.0-15.0); WHITE BLOOD COUNT 6.3 x10^3/uL (4.8-10.8)
[2021-09-23 19:03] LABS: CALCIUM 9.7 mg/dL (8.5-10.3); CREATININE 0.9 mg/dL (0.4-1.0); CRP - C-REACTIVE PROTEIN 1.3 mg/dL (0-1.0); POTASSIUM 3.9 mmol/L (3.5-5.0)
[2021-09-23 19:08] LABS: THYROID STIMULATING HORMONE 7.8 uIU/mL (0.34-5.60)
[2021-09-23 19:10] LABS: FREE T4 (FREE THYROXINE) 0.84 ng/dL (0.58-1.64)
[2021-09-23 19:24] LABS: RHEUMATOID FACTOR NEGATIVE (Negative)
[2021-09-23 19:36] LABS: FOLLICLE STIMULATING HORMONE 44.52 mIU/mL
== END 2021-09-23 23:59 | disposition home or self-care (01) ==
LOC: LAB.N 08:00
PROVIDERS: ATTEND Family Medicine
DX: E89.0 Postprocedural hypothyroidism (principal); R03.0 Elevated blood-pressure reading, without diagnosis of hypertension; M25.50 Pain in unspecified joint; N91.2 Amenorrhea, unspecified
CPT/HCPCS: 36415; 80048; 83001; 84439; 84443; 85025; 85651; 86140; 86430

== ENCOUNTER 2022-08-10 11:38 | Outpatient (CLI) | payer MEDICAID ==
--- NOTE | 2022-08-10 15:57 | XRAY Report ---
PROCEDURE: Foot 3 View LT INDICATIONS: L FOOT SPRAIN TECHNIQUE: 3 views of the foot were acquired. COMPARISON: None FINDINGS: Bones: No fractures or dislocations. No suspicious bony lesions. Soft tissues: No tibiotalar joint effusion. Achilles tendon appears normal. IMPRESSION: Unremarkable left foot radiographs Reviewed by: Jose Cruz Montiel MD on 08/10/2022 2:56 PM AKDT Approved by: Jose Cruz Montiel MD on 08/10/2022 2:56 PM AKDT Station ID: [id number]
--- NOTE | 2022-08-10 16:05 | XRAY Report ---
PROCEDURE: Ankle 3 View LT INDICATIONS: L ANKLE SPRAIN TECHNIQUE: 3 views of the ankle were acquired. COMPARISON: None FINDINGS: Bones: No fractures or dislocations. Ankle mortise is normally aligned. No suspicious bony lesions . Soft tissues: No tibiotalar joint effusion. Achilles tendon appears normal. IMPRESSION: Normal left ankle radiographs Reviewed by: oJse Cruz Montiel MD on 08/10/2022 3:04 PM CHAD Approved by: Jose Cruz Montiel MD on 08/10/2022 3:04 PM CHAD Station ID: [id number]
== END 2022-08-10 11:39 | disposition home or self-care (01) ==
LOC: DI.N 11:38
PROVIDERS: ATTEND Emergency Medicine
DX: S93.492A Sprain of other ligament of left ankle, initial encounter (principal); S93.602A Unspecified sprain of left foot, initial encounter

== ENCOUNTER 2022-09-21 11:01 | Outpatient (CLI) | payer MEDICAID ==
[2022-09-21 18:01] LABS: BASOPHILS # (AUTO) 0.1 10^3/uL (0.0-0.1); BASOPHILS % (AUTO) 0.9 %; EOSINOPHILS # (AUTO) 0.3 10^3/uL (0.0-0.7); EOSINOPHILS % (AUTO) 4.1 %; HCT - HEMATOCRIT 43.3 % (37.0-47.0); LYMPHOCYTES % (AUTO) 40.6 %; MEAN CORPUSCULAR HGB CONC 32.3 g/dL (32.0-36.0); MEAN CORPUSCULAR VOLUME 95.8 fL (81.0-99.0); MEAN PLATELET VOLUME 10.8 fL (7.9-10.8); MONOCYTES # (AUTO) 0.4 10^3/uL (0.0-1.0); MONOCYTES % (AUTO) 5.7 %; NEUTROPHILS # (AUTO) 3.6 10^3/uL (1.5-6.6); NEUTROPHILS % (AUTO) 48.6 %; PLT - PLATELET COUNT 211 10^3/uL (130-450); RED BLOOD COUNT 4.52 10^6/uL (4.20-5.40); RED CELL DISTRIBUTION WIDTH 12.8 % (12.0-15.0); WHITE BLOOD COUNT 7.4 x10^3/uL (4.8-10.8)
[2022-09-21 18:19] LABS: % IRON SATURATION 28 % (20-50); ALBUMIN 4.5 g/dL (3.2-5.5); ALBUMIN/GLOBULIN RATIO 1.3 (1.0-2.2); ALKALINE PHOSPHATASE 58 IU/L (42-121); ALT ALANINE AMINOTRANSFERASE 34 IU/L (10-60); AST ASPARTATE AMINOTRANSFERASE 34 IU/L (10-42); BILIRUBIN,TOTAL 0.9 mg/dL (0.2-1.0); BUN - BLOOD UREA NITROGEN 21 mg/dL (6-20); CALCIUM 9.7 mg/dL (8.5-10.3); CARBON DIOXIDE - CO2 25 mmol/L (21-32); CHLORIDE 106 mmol/L (101-111); CHOL/HDL RATIO 5.7 (<4.4); CHOLESTEROL 240 mg/dL; CREATININE 0.8 mg/dL (0.4-1.0); GFR - MDRD 75 (>89); GLUCOSE 109 mg/dL (70-100); HDL CHOLESTEROL 42 mg/dL; IRON 116 ug/dL (28-170); LDL CHOLESTEROL,CALCULATED 172 mg/dL; LDL/HDL RATIO 4.1 (<4.4); POTASSIUM 4.3 mmol/L (3.5-5.0); SODIUM 139 mmol/L (135-145); TOTAL IRON BINDING CAPACITY 409 ug/dL (250-450); TOTAL PROTEIN 7.9 g/dL (6.7-8.2); TRANSFERRIN 292 mg/dL (192-382); TRIGLYCERIDES 129 mg/dL; VLDL CHOLESTEROL 26 mg/dL
[2022-09-21 18:26] LABS: THYROID STIMULATING HORMONE 8.05 uIU/mL (0.34-5.60)
[2022-09-21 18:28] LABS: FREE T3 3.04 pg/mL (2.5-3.9)
[2022-09-21 18:29] LABS: FREE T4 (FREE THYROXINE) 0.93 ng/dL (0.58-1.64)
[2022-09-21 18:33] LABS: FERRITIN 58.3 ng/mL (11.0-306.8)
[2022-09-21 19:02] LABS: CRP - C-REACTIVE PROTEIN < 1.0 mg/dL (0-1.0)
[2022-09-21 19:11] LABS: RHEUMATOID FACTOR NEGATIVE (Negative)
[2022-09-23 16:08] LABS: ANTI-DNA (DS) AB QN 1 IU/mL (0-9)
== END 2022-09-21 11:02 | disposition home or self-care (01) ==
LOC: LAB.N 11:01
PROVIDERS: ATTEND Physician Assistant
DX: L65.9 Nonscarring hair loss, unspecified (principal); E89.0 Postprocedural hypothyroidism; E78.5 Hyperlipidemia, unspecified; E04.1 Nontoxic single thyroid nodule; E05.00 Thyrotoxicosis with diffuse goiter without thyrotoxic crisis or storm; M25.50 Pain in unspecified joint
CPT/HCPCS: 36415; 80050; 80061; 82728; 83540; 83721; 84439; 84466; 84481; 85651; 86038; 86140; 86200; 86225; 86430

== ENCOUNTER 2022-09-21 11:07 | Outpatient (CLI) | payer MEDICAID ==
--- NOTE | 2022-09-21 14:13 | XRAY Report ---
PROCEDURE: Hips 2V BILAT INDICATIONS: BILATERAL HIP PX TECHNIQUE: 2 views of the hip were acquired. COMPARISON: None FINDINGS: Bones: No fractures or dislocations. No suspicious bony lesions. The visualized pelvic ring appear s intact. Soft tissues: No suspicious soft tissue calcifications or masses. IMPRESSION: Normal bilateral hips Reviewed by: Alis Stanley MD on 09/21/2022 2:12 PM PDT Approved by: Alis Stanley MD on 09/21/2022 2:12 PM PDT Station ID: [id number]
== END 2022-09-21 11:08 | disposition home or self-care (01) ==
LOC: DI.N 11:07
PROVIDERS: ATTEND Physician Assistant
DX: M25.551 Pain in right hip (principal); M25.552 Pain in left hip; L65.9 Nonscarring hair loss, unspecified; E89.0 Postprocedural hypothyroidism; E78.5 Hyperlipidemia, unspecified; E04.1 Nontoxic single thyroid nodule; E05.00 Thyrotoxicosis with diffuse goiter without thyrotoxic crisis or storm; M25.50 Pain in unspecified joint
CPT/HCPCS: 36415; 80050; 80061; 82728; 83540; 83721; 84439; 84466; 84481; 85651; 86038; 86140; 86200; 86225; 86430

== ENCOUNTER 2023-11-30 09:30 | Outpatient (CLI) | payer MEDICAID ==
[2023-11-30 10:10] LABS: THYROID STIMULATING HORMONE 21.67 uIU/mL (0.34-5.60)
== END 2023-11-30 09:31 | disposition home or self-care (01) ==
LOC: LAB 09:30
PROVIDERS: ATTEND Physician Assistant
DX: E03.9 Hypothyroidism, unspecified (principal); R94.6 Abnormal results of thyroid function studies
CPT/HCPCS: 36415; 84439; 84443; 84481

== ENCOUNTER 2024-01-11 12:49 | Outpatient (CLI) | payer MEDICAID ==
[2024-01-11 13:34] LABS: THYROID STIMULATING HORMONE 8.72 uIU/mL (0.34-5.60)
== END 2024-01-11 12:50 | disposition home or self-care (01) ==
LOC: LAB 12:49
PROVIDERS: ATTEND Physician Assistant Medical
DX: R94.6 Abnormal results of thyroid function studies (principal)
CPT/HCPCS: 36415; 84439; 84443

== ENCOUNTER 2024-05-30 12:35 | Outpatient (CLI) | payer MEDICAID, OTHER ==
--- NOTE | 2024-05-30 19:08 | XRAY Report ---
PROCEDURE: Shoulder 2+V RT INDICATIONS: PAIN IN RIGHT SHOULDER TECHNIQUE: 3 views of the shoulder were acquired. COMPARISON: None. FINDINGS: Bones: No fractures or dislocations. No suspicious bony lesions. Visualized ribs appear intact. Soft tissues: No suspicious soft tissue calcifications. The visualized lungs are within normal limi ts. IMPRESSION: No acute bony abnormality. Reviewed by: Terry Jallho MD on 05/30/2024 7:06 PM PDT Approved by: Terry Jalloh MD on 05/30/2024 7:06 PM PDT Station ID: [id number]
== END 2024-05-30 12:55 | disposition home or self-care (01) ==
LOC: DI.N 12:35
PROVIDERS: ATTEND Nurse Practitioner
DX: M25.511 Pain in right shoulder (principal)